=== PATIENT | male | born 1980 | race Caucasian/White ===

== ENCOUNTER 2017-06-19 19:21 | Emergency (ER) | payer SELFPAY ==
[~2017-06-19] VITALS: Ht 162.6 cm; Wt 65.8 kg
[~2017-06-19 19:21] MED LIST: DICL75 PO; ROBA750T3 PO
[2017-06-19 20:36] VITALS: BP 157/72; PULSE 87; RESP 16; TEMP 98.4; O2SAT 98
[2017-06-19] MEDS ORDERED: FLUORESCEIN SOD 1 MG STRIP EACH EYE ONE ×2 (20:45→21:00)
[2017-06-19] MEDS ORDERED: TETRACAINE 0.5% OPTH SOLN 2 ML BTL EACH EYE ONE (20:45)
--- NOTE | 2017-06-19 20:46 | PD ---
HPI Chief Complaint: Eye Problems/Injury Time Seen by Provider: 20:44 Travel History International Travel<30 days: No Contact w/Intl Traveler<30days: No Traveled to known affect area: No History of Present Illness HPI 36-year-old male complains of right eye pain after a stick struck the right eyeball this morning while he was working. He reports blurred vision and pain. The pain is constant. It's worsening in severity. No double vision. No loss of vision. Duration has been about 10 hours PFSH Past Medical History Diminished Hearing: No Immunizations Current: Yes ?: Not Past Surgical History Oral Surgery: Yes (adnoids) Other Surgery: Yes (ADENOIDS REMOVED A CHILD) Social History Alcohol Use: Yes (weekends) Tobacco Use: Yes (1 PPD) Substance Use: No Allergies-Medications (Allergen,Severity, Reaction): Coded Allergies: bee venom protein (honey bee) (Unverified Allergy, Severe, swelling, ) codeine (Unverified Allergy, Severe, ITCH, 06/19/17) diatrizoate meglumine (Unverified Allergy, Unknown, 06/19/17) PT. STATES HE IS UNSURE OF WHAT HAPPENS BECAUSE HE WAS YOUNG gadobenic acid (Unverified Allergy, Unknown, 06/19/17) PT. STATES HE IS UNSURE OF WHAT HAPPENS BECAUSE HE WAS YOUNG gadodiamide (Unverified Allergy, Unknown, 06/19/17) PT. STATES HE IS UNSURE OF WHAT HAPPENS BECAUSE HE WAS YOUNG gadoteridol (Unverified Allergy, Unknown, 06/19/17) PT. STATES HE IS UNSURE OF WHAT HAPPENS BECAUSE HE WAS YOUNG iodixanol (Unverified Allergy, Unknown, 06/19/17) PT. STATES HE IS UNSURE OF WHAT HAPPENS BECAUSE HE WAS YOUNG iohexol (Unverified Allergy, Unknown, 06/19/17) PT. STATES HE IS UNSURE OF WHAT HAPPENS BECAUSE HE WAS YOUNG Reported Meds & Prescriptions Reported Meds & Active Scripts Active No Active Prescriptions or Reported Medications Review of Systems General / Constitutional: No: Chills HENT: No: Rhinitis Cardiovascular: No: Chest Pain or Discomfort Physical Exam Narrative GENERAL: 36-year-old male well-nourished well-developed moderate distress Vital Signs Date Time Temp Pulse Resp B/P (MAP) Pulse Ox O2 Delivery O2 Flow Rate FiO2 06/19/17 20:36 98.4 87 16 157/72 (100) 98 SKIN: Warm and dry. HEAD: Atraumatic. Normocephalic. EYES: Pupils equal and round. No scleral icterus. No injection or drainage. Floor seen stain picks up in the 11 to 2 o'clock position of the right iris. No foreign body. No traumatic hyphema. No open globe. ENT: No nasal bleeding or discharge. Mucous membranes pink and moist. NECK: Trachea midline. No JVD. CARDIOVASCULAR: Regular rate and rhythm. Data Data Last Documented VS Vital Signs Date Time Temp Pulse Resp B/P (MAP) Pulse Ox O2 Delivery O2 Flow Rate FiO2 06/19/17 20:36 98.4 87 16 157/72 (100) 98 Orders Orders Tetracaine 0.5% Opht Soln (Pontocaine 0. (06/19/17 20:45) Fluorescein Strip (Hfezn-H-Eybyvj A.T.) (06/19/17 20:45) Proparacaine 0.5% Opth Soln (Alcaine 0.5 (06/19/17 21:00) Fluorescein Strip (Catuq-D-Avqxje A.T.) (06/19/17 21:00) MDM Medical Decision Making Medical Screen Exam Complete: Yes Emergency Medical Condition: Yes Medical Record Reviewed: Yes Differential Diagnosis Corneal abrasion, open globe, foreign body Narrative Course Patient is corneal abrasion. Scripts as below. Last tetanus was 2 years ago. Diagnosis Primary Impression: Cornea abrasion Qualified Codes: S05.01XA - Injury of conjunctiva and corneal abrasion without foreign body, right eye, initial encounter Referrals: Bambi Fitzpatrick MD as needed Corneal abrasion Med/Other Pt SpecificInfo: Prescription(s) given Scripts Ciprofloxacin Opth Drops (Ciprofloxacin Opth Drops) 0.3% Soln 2 DROP RIGHT EYE Q2H for Infection, #1 BOTTLE 0 Refills while awake x 5 days. Prov: Shahab Zhang MD 06/19/17 Ibuprofen (Ibuprofen) 600 Mg Tab 600 MG PO Q8HR Y for PAIN, #20 TAB 0 Refills Prov: Shahab Zhang MD 06/19/17 Oxycodone-Acetaminophen (Percocet) 5-325 mg Tab 1-2 TAB PO Q6H Y for PAIN SCALE 6 TO 10, #12 TAB 0 Refills Prov: Shahab Zhang MD 06/19/17 Disposition: 01 DISCHARGE HOME Condition: Stable Shahab Zhang MD Jun 19, 2017 20:46
[2017-06-19] MEDS ORDERED: PROPARACAINE HCL 0.5% OPHT SOLN 15 ML BTL EACH EYE ONE (21:00)
[2017-06-19] MEDS ORDERED: IBUP-232 PO ×2 (21:11→21:18)
[2017-06-19] MEDS ORDERED: CIPR0.3S2 RIGHT EYE ×2 (21:11→21:18)
[2017-06-19] MEDS ORDERED: PERC5TAB12 PO ×2 (21:11→21:18)
[2017-06-19] MEDS ORDERED: oxyCODONE/ACETAMINOPHEN 5 MG/325 MG TAB PO ONE (21:15)
== END 2017-06-19 21:27 | disposition home or self-care (01) ==
LOC: PHEFT 19:21
DX: S05.01XA Injury of conjunctiva and corneal abrasion without foreign body, right eye, initial encounter (principal); F17.210 Nicotine dependence, cigarettes, uncomplicated; W22.8XXA Striking against or struck by other objects, initial encounter
CPT/HCPCS: 99283